=== PATIENT | male | born 1975 ===

== ENCOUNTER → 2023-01-27 16:13 | Outpatient (CLI) | payer OTHER, SELFPAY ==
--- NOTE | 2023-01-27 16:15 | DI.RAD.S_ITS ---
PROCEDURE: XR RIBS RT MIN 3V W CXR 1V INDICATIONS: Right sided pain after water skiing fall TECHNIQUE: 2 views of the right ribs were acquired, along with a single view chest. COMPARISON: None. FINDINGS: Surgical changes and devices: None. Bones and chest wall: No fractures or dislocations. No suspicious bony lesions. Overlying soft tissues appear unremarkable. Lungs and pleura: No pleural effusions or pneumothorax. Lungs appear clear. Mediastinum: Mediastinal contours appear normal. Heart size is normal. IMPRESSION: No displaced rib fracture. No acute cardiopulmonary disease process. Dictated by: Areli Paerdes MD, PhD on 01/27/2023 at 16:40 Approved by: Areli Paredes MD, PhD on 01/27/2023 at 16:42
== END ==
PROVIDERS: Referring Provider Physician Assistant; Visit Provider Physician Assistant
DX: R07.89 Other chest pain (principal)
CPT/HCPCS: 71101